=== PATIENT | female | born 1950 | race Two or more races ===

== ENCOUNTER 2016-06-25 19:08 | Inpatient (IN) | payer OTHER ==
[~2016-06-25] VITALS: Ht 165.1 cm; Wt 55.8 kg
[2016-06-25] MEDS ORDERED: ONDANSETRON HCL/PF 4 MG/2 ML VIAL IV STA (19:26)
[2016-06-25] MEDS ORDERED: IV NS 0.9% 1,000 ML BAG IV ONE (19:30)
--- NOTE | 2016-06-25 19:30 | NUR ---
TO BED 2 AMBULATORY C/O GENERAL MALAISE, DIZZINESS, DECREASE APPETITE. PT AND PT SON REPORTS THAT SHE SAW HER PMD LAST TUESDAY AND WAS GIVEN ANTIBIOTIC WITHOUT ANY CHANGE. PT REPORTS THAT SHE WAS DX'D WITH UTI 2 WEEKS AGO. PT AAOX4 NO ACUTE DISTRESS NOTED, RESP EVEN AND UNLABORED. PLACE PT ON CARDIAC MONITORING, CONTINUOUS POX. URINE SAMPLE COLLECTED AND SENT TO LAB. PENDING ER MD CRAIG.
--- NOTE | 2016-06-25 19:35 | NUR ---
STARTED SL 18G TO LAC, BLOOD DRAWN AND SENT TO LAB.
[2016-06-25] MEDS ORDERED: MECLIZINE HCL 25 MG TABLET PO STA (19:37)
[2016-06-25 19:44] LABS: BASOPHILS % (AUTO) 0.5 % (0.0-2.0); EOSINOPHILS # (AUTO) 0.1 /CMM (0.0-0.7); EOSINOPHILS % (AUTO) 0.9 % (0.0-6.0); HEMATOCRIT 41 % (33-45); HEMOGLOBIN 13.9 g/dL (11.5-14.8); LYMPHOCYTES # (AUTO) 0.8 /CMM (0.8-4.8); LYMPHOCYTES % (AUTO) 13.5 % (20.0-44.0); MEAN CORPUSCULAR HEMOGLOBIN 30 PG (26.0-33.0); MEAN CORPUSCULAR HGB CONC 34 g/dl (31.0-36.0); MEAN CORPUSCULAR VOLUME 89 fL (82-100); MONOCYTES # (AUTO) 0.6 /CMM (0.1-1.30); MONOCYTES % (AUTO) 9.1 % (2.0-12.0); NEUTROPHILS # (AUTO) 4.7 /CMM (1.8-8.9); PLATELET COUNT (AUTO) 145 /CMM (150-450); RDW COEFFICIENT OF VARIATION 11.9 (11.5-15.0); WHITE BLOOD COUNT (AUTO) 6.2 K/uL (4.3-11.0)
[2016-06-25] MEDS ORDERED: IV SET PRIMARY 1 EA INFUS.SET MC ONE ×2 (19:45→20:59)
[2016-06-25] MEDS ORDERED: IV NS 0.9% 1,000 ML ONE (19:45)
[2016-06-25] MEDS ORDERED: ONDANSETRON HCL/PF 4 MG/2 ML VIAL ONE (19:45)
[2016-06-25] MEDS ORDERED: MECLIZINE HCL 25 MG TABLET ONE (19:45)
[2016-06-25 19:47] LABS: APPEARANCE,URINE Clear (CLEAR); BILIRUBIN,URINE Negative (NEGATIVE); BLOOD, URINE Small Ery/uL (NEGATIVE); COLOR,URINE Yellow (YELLOW); KETONES,URINE 15 (NEGATIVE); LEUKOCYTE ESTERASE ,URINE Negative (NEGATIVE); NITRITE, URINE Positive (NEGATIVE); PH,URINE 5.5 (5.0-8.0); PROTEIN,URINE Negative (NEGATIVE); UGLUCOSE Negative (NEGATIVE); UROBILINOGEN,URINE 0.2 EU/dL (0.2)
[2016-06-25 19:58] LABS: INR 0.99 (0.87-1.13); PROTHROMBIN TIME 10.3 SECS (9.5-12.7)
--- NOTE | 2016-06-25 19:59 | NUR ---
PT TRANSPORTED TO RADIOLOGY FOR CT HEAD.
[2016-06-25 20:02] LABS: TROPONIN I < 0.017 ng/mL (0.00-0.056)
--- NOTE | 2016-06-25 20:09 | NUR ---
PT BACK FROM RADIOLOGY. PENDING CT HEAD RESULT.
[2016-06-25 20:13] LABS: ALANINE AMINOTRANSFERASE 19 U/L (12-78); ALBUMIN 4.4 g/dL (3.4-5.0); ALKALINE PHOSPHATASE 89 U/L (46-116); ASPARTATE AMINOTRANSFERASE 26 U/L (15-37); BILIRUBIN,DIRECT 0.2 mg/dL (0.0-0.2); BILIRUBIN,TOTAL 1.1 mg/dL (0.2-1.0); CALCIUM, SERUM 9.3 mg/dL (8.5-10.1); CARBON DIOXIDE 31 mmol/L (21-32); CHLORIDE 85 mmol/L (98-107); CREATININE 1.4 mg/dL (0.6-1.3); GFR 38 mL/min (>60); GLUCOSE 115 mg/dL (74-106); LIPASE 196 U/L (73-393); POTASSIUM 3.1 mmol/L (3.5-5.1); SODIUM SERUM 122 mmol/L (136-145); TOTAL PROTEIN, SERUM 7.5 g/dL (6.4-8.2); UREA NITROGEN, BLOOD 19 mg/dL (7-18)
[2016-06-25 20:24] LABS: ADD URINE CULTURE NO; BACTERIA,URINE None seen /HPF (None Seen); SQUAMOUS EPITHELIAL CELL,UR Few /HPF (None Seen); WBC,URINE 0-2 /HPF (0-3)
--- NOTE | 2016-06-25 20:24 | NUR ---
INOCENCIA PAGED, ZAYRA CASTELLANOS (MARY) CLERK SPECIALIST
--- NOTE | 2016-06-25 20:25 | NUR ---
CALLED NURSING SUP. FOR MS BED
--- NOTE | 2016-06-25 20:26 | NUR ---
HAL STOUT TALKING TO ZAYRA [facility]LLANOS [facility] REGARDING PT ADMISSION.
--- NOTE | 2016-06-25 20:28 | NUR ---
ER PA SPOKE TO RADIOLOGIST REGARDING CT RESULT.
[2016-06-25] MEDS ORDERED: CEFTRIAXONE 1 G VIAL IV STA (20:54)
[2016-06-25] MEDS ORDERED: CEFTRIAXONE 1GM BAG (ER ONLY) 50 ML IV ONE (20:59)
--- NOTE | 2016-06-25 21:00 | NUR ---
REPORT CALLED TO [facility]. WILL TRANSPORT PT VIA ACLS PROTOCOL.
--- NOTE | 2016-06-25 21:10 | NUR ---
TEXTED DR. SIMMS FOR MRI APPROVAL.
--- NOTE | 2016-06-25 21:10 | NUR ---
RN M/S ADMIT PT ARRIVED ON UNIT. AAOX4, UZBEK SPEAKING. NO C/O PAIN OR DISCOMFORT AT THIS TIME. DENIES N/V. BREATHING NON-LABORED AND EVEN. IV INTACT AND PATENT. AMBULATORY. SKIN INTACT. ORIENTATED TO UNIT AND CALL LIGHT. AWAITING MD ORDERS. WILL CONT TO MONITOR.
[2016-06-25 21:27] LABS: OSMOLALITY,SERUM 254 mOS/kg (278-305)
[2016-06-25 21:28] LABS: OSMOLALITY,URINE 206 mOS/kg (340-1090)
[2016-06-25] MEDS ORDERED: Z GUARD REMEDY 2 OZ OINT TP PRN (21:30)
[2016-06-25] MEDS ORDERED: HYDROCODONE/APAP 10/325MG 1 EA TABLET PO PRN (21:30)
[2016-06-25] MEDS ORDERED: MAG HYDROX/AL HYDROX/SIMETH 30 ML UDC PO PRN (21:30)
[2016-06-25] MEDS ORDERED: MAGNESIUM HYDROXIDE 30 ML UDC PO PRN (21:30)
[2016-06-25] MEDS ORDERED: ONDANSETRON HCL/PF 4 MG/2 ML VIAL IVP PRN (21:30)
[2016-06-25] MEDS ORDERED: HYDROCODONE/APAP 5/325MG 1 EACH TABLET PO PRN (21:30)
[2016-06-25] MEDS ORDERED: POTASSIUM CHLORIDE 20 MEQ TAB.PRT.SR PO ONE ×2 (22:00→22:06)
[2016-06-25] MEDS ORDERED: CEFTRIAXONE 1 G in IV D5W 50 ML IV SCH (22:00)
[2016-06-25] MEDS ORDERED: IV SET PRIMARY PUMP SET 1 EA INFUS.SET MC ONE (22:10)
[2016-06-25] MEDS: IV NS 0.9% 1,000 ML IV PRN (22:14)
[2016-06-25] MEDS ORDERED: BENA20TA2 PO (23:12)
[2016-06-25] MEDS ORDERED: ASPI81TA2 PO (23:12)
[2016-06-25] MEDS ORDERED: PHEN-705 PO (23:12)
[2016-06-25] MEDS ORDERED: HYDR25TA4 PO (23:12)
[2016-06-25] MEDS ORDERED: ATEN25TA PO (23:12)
[2016-06-25] MEDS ORDERED: ATOR20TA PO (23:12)
--- NOTE | 2016-06-26 06:20 | NUR ---
RN NOTE NO SIGNIFICANT CHANGES OVERNIGHT, SLEPT WELL. PT DENIES N/V/DIZZINESS. NO DISTRESS NOTED AT THIS TIME. IV INTACT, TOLERATING FLUIDS WELL. NUERO CHECKS Q1HRS. ALL NEEDS ATTENDED TO, PT INSTRUCTED TO USE ORANGE CONTAINER FOR 24 HR URINE COLLECTION. CALL LIGHT IN REACH, WILL F/U WITH DAY SHIFT FOR NAVDEEP.
[2016-06-26 07:38] LABS: BASOPHILS % (AUTO) 0.9 % (0.0-2.0); EOSINOPHILS # (AUTO) 0.1 /CMM (0.0-0.7); EOSINOPHILS % (AUTO) 1.7 % (0.0-6.0); HEMATOCRIT 41 % (33-45); HEMOGLOBIN 13.7 g/dL (11.5-14.8); LYMPHOCYTES # (AUTO) 1.1 /CMM (0.8-4.8); LYMPHOCYTES % (AUTO) 22.3 % (20.0-44.0); MEAN CORPUSCULAR HEMOGLOBIN 30 PG (26.0-33.0); MEAN CORPUSCULAR HGB CONC 34 g/dl (31.0-36.0); MEAN CORPUSCULAR VOLUME 90 fL (82-100); MONOCYTES # (AUTO) 0.5 /CMM (0.1-1.30); MONOCYTES % (AUTO) 11.6 % (2.0-12.0); NEUTROPHILS % (AUTO) 63.5 % (43.0-81.0); PLATELET COUNT (AUTO) 139 /CMM (150-450); WHITE BLOOD COUNT (AUTO) 4.7 K/uL (4.3-11.0)
[2016-06-26 07:50] LABS: CALCIUM, SERUM 8.8 mg/dL (8.5-10.1); CREATININE 1.2 mg/dL (0.6-1.3); PHOSPHORUS 3.3 mg/dL (2.5-4.9); POTASSIUM 3.2 mmol/L (3.5-5.1)
[2016-06-26 07:51] LABS: THYROID STIMULATING HORMONE 3.61 uIU/mL (0.358-3.74)
--- NOTE | 2016-06-26 07:58 | NUR ---
RN AM NOTES RECEIVED PATIENT IN STABLE CONDITION, ALERT AND ORIENTED X4. CITIZEN [place] SPEAKING WITH SON AT BEDSIDE. STARTING 24 HOUR URINE COLLECTION THIS AM ORDERED. FOLLOWING UP ON NEURO CONSULT AND MRI. WILL CONTINUE TO MONITOR.
[2016-06-26 08:00] VITALS: BP 108/60
[2016-06-26] MEDS: ATENOLOL 25 MG TABLET PO SCH (09:15)
[2016-06-26] MEDS: POTASSIUM CL. PREMIX PERIPHER. 50 ML IV SCH ×2 (11:11→11:12)
[2016-06-26] MEDS ORDERED: SECONDARY IV SET 1 EA INFUS.SET MC ONE (11:11)
[2016-06-26] MEDS: ACETAMINOPHEN 325 MG TABLET PO PRN (12:00)
--- NOTE | 2016-06-26 12:04 | NUR ---
PATIENT COMPLAINED OF PAIN AND NAUSEA AFTER 1ST BAG OF POTASSIUM INFUSION. STOPPED INFUSION AND ADMNISTERED ZOFRAN AND TYLENOL ORDERED. WILL CONTINUE TO MONITOR AND REASSESS IN 30 MINUTES.
[2016-06-26 15:44] VITALS: BP 100/57
--- NOTE | 2016-06-26 16:32 | NUR ---
PATIENT TOLERATING IV INFUSION AND FLUIDS WELL. URINATING 50 CC AT A TIME, TEA COLORED URINE. ENCOURAGING PATIENT TO DRINK FLUIDS PO WELL. PATIENT VERBALIZED UNDERSTANDING. SON STILL AT BEDSIDE. PATIENT ABLE TO REPOSITION FREQUENTLY TOLERATED. WILL CONTINUE TO MONITOR.
--- NOTE | 2016-06-26 19:00 | NUR ---
MS RN OPENING NOTES RECEIVED PATIENT IN BED, AWAKE/O X 4, IV SITE INTACT WITH NO S/S OF INFILTRATION NOTED. NO S/S OF BLEEDING NOTED. NO S/S OF DISTRESS, NO CHEST PAIN IN STABLE CONDITION. KEPT CLEAN DRY AND COMFORTABLE. SAFE HAZARD FREE ENVIRONMENT PROVIDED. WILL CONTINUE TO MONITOR PATIENT.
[2016-06-26] MEDS: CEFTRIAXONE 1 G in IV D5W 50 ML IV SCH (19:04)
--- NOTE | 2016-06-26 19:06 | NUR ---
RN PM NOTES PATIENT IN STABLE CONDITION, ALERT AND ORIENTED X4. HOURLY NEUROCHECKS FOUND PATIENT ALERT AND ORIENTED X4. AMHARIC SPEAKING, BUT ABLE TO MAKE NEEDS KNOWN. URINARY OUTPUT ADEQUATE.TOLERATING IV INFUSIONS WELL.WILL ENDORSE TO NEXT SHIFT.
[2016-06-26 20:00] VITALS: BP 104/61
[2016-06-26] MEDS ORDERED: ATORVASTATIN 10 MG TABLET PO SCH (22:00)
--- NOTE | 2016-06-27 06:32 | NUR ---
MS RN CLOSING NOTES IN BED ASLEEP AND EASILY AWAKEN, SEMI FOWLERS POSITION, ON ATB WITH NO A/R NOTED. SKIN WARM AND DRY TO TOUCH, AFEBRILE, ALL NURSING CARE NEEDS PROVIDED AND RENDERED, NEEDS ATTENDED AND ANTICIPATED, 24 HOUR URINE COLLECTION WILL END TODAY AT 0700 KEPT CLEAN AND DRY AND COMFORTABLE, BLADDER NOT DISTENDED, CONTINUE WITH CURRENT MEDICATION ORDERED, NO LATE ADVERSE REACTION NOTED/REPORTED. COOPERATIVE TO HER PLAN OF CARE. SAFE HAZARD FREE ENVIRONMENT MAINTAINED.GOOD SKIN CARE PROVIDED. ALL DUE MEDS WAS GIVEN. KEPT AT LOW BED. NS RUNNING 75CC/HR TOLERATED WELL. FREQUENT VISUAL CHECK FOR SAFETY. PLAN OF CARE ORDERED. CALL LIGHT ATTENDED PROMPTLY AND KEPT AT EASY REACH. WILL ENDORSE TO THE NEXT SHIFT CONTINUE PLAN OF CARE
--- NOTE | 2016-06-27 07:00 | NUR ---
RN MS NOTES PATIENT IN BED, ALERT AND ORIENTED, ETHIOPIAN SPEAKING ONLY, SON AT BEDSIDE TO INTERPRET, IVF INFUSING AND TOLERATING WELL, NO DISTRESS NOTED, NO SOB, 24 HOUR URINE COLLECTED AND WILL BE SENT TO LAB, CALL LIGHT WITHIN REACH, WILL CONTINUE TO MONITOR.
[2016-06-27 07:35] LABS: BASOPHILS % (AUTO) 0.6 % (0.0-2.0); EOSINOPHILS # (AUTO) 0.1 /CMM (0.0-0.7); EOSINOPHILS % (AUTO) 1.5 % (0.0-6.0); HEMATOCRIT 38 % (33-45); HEMOGLOBIN 12.5 g/dL (11.5-14.8); LYMPHOCYTES # (AUTO) 1.3 /CMM (0.8-4.8); LYMPHOCYTES % (AUTO) 20.4 % (20.0-44.0); MEAN CORPUSCULAR HEMOGLOBIN 30 PG (26.0-33.0); MEAN CORPUSCULAR HGB CONC 33 g/dl (31.0-36.0); MEAN CORPUSCULAR VOLUME 91 fL (82-100); MONOCYTES # (AUTO) 0.6 /CMM (0.1-1.30); MONOCYTES % (AUTO) 9.1 % (2.0-12.0); NEUTROPHILS # (AUTO) 4.2 /CMM (1.8-8.9); NEUTROPHILS % (AUTO) 68.4 % (43.0-81.0); PLATELET COUNT (AUTO) 126 /CMM (150-450); RDW COEFFICIENT OF VARIATION 13.3 (11.5-15.0); RED BLOOD CELL COUNT(AUTO) 4.16 MIL/uL (4.0-5.2); WHITE BLOOD COUNT (AUTO) 6.1 K/uL (4.3-11.0)
[2016-06-27 07:49] LABS: CALCIUM, SERUM 8.8 mg/dL (8.5-10.1); CREATININE 1.1 mg/dL (0.6-1.3); MAGNESIUM 1.9 mg/dL (1.8-2.4); PHOSPHORUS 2.9 mg/dL (2.5-4.9); POTASSIUM 4.3 mmol/L (3.5-5.1)
[2016-06-27 08:00] VITALS: BP 114/68
[2016-06-27 08:00] LABS: THYROID STIMULATING HORMONE 2.038 uIU/mL (0.358-3.74); URIC ACID 5.1 mg/dL (2.6-7.2)
[2016-06-27] MEDS: ATORVASTATIN 40 MG TABLET PO SCH (09:16)
[2016-06-27] MEDS: ATENOLOL 25 MG TABLET PO SCH (09:16)
[2016-06-27] MEDS: IV NS 0.9% 1,000 ML IV PRN (13:13)
[2016-06-27 16:04] VITALS: BP 110/65
[2016-06-27] MEDS: CEFTRIAXONE 1 G in IV D5W 50 ML IV SCH (17:19)
--- NOTE | 2016-06-27 18:44 | NUR ---
RN MS NOTES PATIENT IN BED, NO DISTRESS NOTED, REINSERTED NEW IV ON LEFT HAND G24, IVF INFUSING AND TOLERATING WELL, DENIES PAIN OR DISCOMFORT AT THIS TIME, NO DISTRESS NOTED, VITAL SIGNS STABLE, ALL NEEDS ATTENDED, CALL LIGHT WITHIN REACH, SAFETY MEASURES IN PLACED, WILL ENDORSE TO PIANO TECHNICIAN FOR NAVDEEP.
--- NOTE | 2016-06-27 19:30 | NUR ---
RN OPEN NOTES RECEIVED PATIENT AWAKE IN BED WITH FAMILY AT BEDSIDE. A/O X4. NO SIGNS OF DISTRESS OR DISCOMFORT. BREATHING EVEN AND UNLABORED. IV ACCESS IN L HAND WITH NS INFUSING, PATENT AND INTACT, NO SIGNS OF REDNESS OR INFILTRATION. BED IN LOW LOCKED POSITION WITH SIDE RAILS X2. CALL LIGHT WITHIN REACH. WILL CONTINUE TO MONITOR.
[2016-06-27 20:00] VITALS: BP 130/66
--- NOTE | 2016-06-27 20:30 | NUR ---
RN NOTES PATIENT AMBULATING UNIT WITH SONS, STEADY GAIT. WILL CONTINUE TO MONITOR.
[2016-06-28] MEDS: ACETAMINOPHEN 325 MG TABLET PO PRN (01:58)
[2016-06-28 06:07] LABS: TOTAL VOLUME 24HRS,URINE 1650 mL
[2016-06-28 06:10] LABS: SODIUM URINE, 24HR CALC 46 mmol/24H (40-220)
[2016-06-28] MEDS: IV NS 0.9% 1,000 ML IV PRN (06:21)
[2016-06-28 06:51] LABS: BASOPHILS % (AUTO) 0.5 % (0.0-2.0); EOSINOPHILS # (AUTO) 0.1 /CMM (0.0-0.7); EOSINOPHILS % (AUTO) 1.5 % (0.0-6.0); HEMATOCRIT 39 % (33-45); HEMOGLOBIN 12.8 g/dL (11.5-14.8); LYMPHOCYTES % (AUTO) 21.9 % (20.0-44.0); MEAN CORPUSCULAR HEMOGLOBIN 30 PG (26.0-33.0); MEAN CORPUSCULAR HGB CONC 33 g/dl (31.0-36.0); MEAN CORPUSCULAR VOLUME 90 fL (82-100); MONOCYTES # (AUTO) 0.3 /CMM (0.1-1.30); MONOCYTES % (AUTO) 6.8 % (2.0-12.0); NEUTROPHILS # (AUTO) 3.3 /CMM (1.8-8.9); NEUTROPHILS % (AUTO) 69.3 % (43.0-81.0); PLATELET COUNT (AUTO) 131 /CMM (150-450); RDW COEFFICIENT OF VARIATION 13.3 (11.5-15.0); RED BLOOD CELL COUNT(AUTO) 4.26 MIL/uL (4.0-5.2); WHITE BLOOD COUNT (AUTO) 4.8 K/uL (4.3-11.0)
[2016-06-28 07:01] LABS: CALCIUM, SERUM 8.7 mg/dL (8.5-10.1); CREATININE 1.1 mg/dL (0.6-1.3)
--- NOTE | 2016-06-28 07:45 | NUR ---
MS RN OPENING RECEIVED PATIENT A/OX3 DENIES PAIN, SOB DIFFICULTY BREATHING. PATIENT DENIES DIZZINESS OR CONFUSION AT THIS TIME SHE STATES SHE STILL DOES NOT FEEL STRONG SHE USUALLY IS BUT IS GETTING BETTER. SON AT BEDSIDE WITH PATIENT. IV INTACT PATENT RUNNING FLUIDS ORDERED. PATIENT STATES NO NEEDS AND IN POSITION OF COMFORT. PATIENT WITH CALL LIGHT IN REACH, BED LOWERED AND LOCKED, RAILS UPX3 FOR SAFETY AND WILL ROUND Q2H OR LESS PER NEEDS.
[2016-06-28 08:00] VITALS: BP 139/74
--- NOTE | 2016-06-28 08:10 | NUR ---
RN CLOSING NOTES PATIENT AWAKE IN BED. A/O X4. NO SIGNS OF DISTRESS OR DISCOMFORT. BREATHING EVEN AND UNLABORED. IV ACCESS IN L HAND WITH NS INFUSING, PATENT AND INTACT, NO SIGNS OF REDNESS OR INFILTRATION. ALL NEEDS MET. NO SIGNIFICANT CHANGES THROUGH THE NIGHT. BED IN LOW LOCKED POSITION WITH SIDE RAILS X2. CALL LIGHT WITHIN REACH. ENDORSED TO AM SHIFT FOR NAVDEEP.
[2016-06-28 08:24] VITALS: BP 130/68
[2016-06-28 08:27] VITALS: BP 139/74
[2016-06-28] MEDS: ATENOLOL 25 MG TABLET PO SCH (08:27)
[2016-06-28] MEDS: ATORVASTATIN 40 MG TABLET PO SCH (08:28)
--- NOTE | 2016-06-28 10:26 | NUR ---
MS RN CLOSING PATIENT STABLE NO COMPLICATIONS NO CHANGES. PATIENT AND SON EDUCATED ON DC MATERIAL AND MEDICATIONS. THEY STATE UNDERSTANDING. PATIENT DID NOT WANT ME TO MAKE A FOLLOW UP APPOINTMENT WITH HER MD SON STATES THEY WILL DO WHEN THEY GET HOME. IV REMOVED WITH PRESSURE AND DRESSING APPLIED NO BLEEDING NOTED. PATIENT ASSISTED TO WHEELCHAIR AND TAKEN DOWNSTAIRS BY [facility] [place] NO COMPLICATIONS NO COMPLAINTS
== END 2016-06-28 10:23 | disposition home or self-care (01) | DRG 682 ==
LOC: ER 19:13 → MED 20:53
PROVIDERS: ADMIT Contractor; ATTEND Contractor
DX: N17.0 Acute kidney failure with tubular necrosis (principal); G93.41 Metabolic encephalopathy; E87.1 Hypo-osmolality and hyponatremia; N39.0 Urinary tract infection, site not specified; E87.6 Hypokalemia; Z85.43 Personal history of malignant neoplasm of ovary; Z86.73 Personal history of transient ischemic attack (TIA), and cerebral infarction without residual deficits; I10 Essential (primary) hypertension; E78.5 Hyperlipidemia, unspecified; E87.8 Other disorders of electrolyte and fluid balance, not elsewhere classified
CPT/HCPCS: 36415; 70450-TC; 70551-TC; 80048-TC; 80061-TC; 80076-TC; 81000-TC; 83690-TC; 83735-TC; 83935-TC; 84100-TC; 84443-TC; 84484-TC; 84550-TC; 85025-TC; 85730-TC; 87081-TC; 87086-TC; A4606; J0696; J2405; J3480; J7030; J7060; J8597; Z7610